=== PATIENT | male | born 1985 | race Hispanic/Latino ===

== ENCOUNTER 2022-05-15 21:23 | Emergency (ER) | payer SELFPAY ==
[2022-05-15] MEDS ORDERED: Ondansetron ODT 4 MG TAB ONE (22:59)
[2022-05-15] MEDS ORDERED: Dicyclomine 20 MG TAB ONE (22:59)
== END 2022-05-16 00:27 | disposition home or self-care (01) ==
LOC: ERS 21:23 → EDBD 21:23 → ERS 05-16 00:27
DX: K52.9 Noninfective gastroenteritis and colitis, unspecified (principal); I10 Essential (primary) hypertension; Z79.899 Other long term (current) drug therapy
CPT/HCPCS: 87328; 87329; 99284; Q0162